=== PATIENT | male | born 1985 | race Caucasian/White ===

== ENCOUNTER 2023-10-22 19:49 | Emergency (ER) | payer MEDICAID ==
[~2023-10-22] VITALS: Ht 165.1 cm; Wt 63.5 kg
[2023-10-22 19:54] VITALS: PULSE 108; RESP 12; O2SAT 97
[2023-10-22 19:55] VITALS: BP 140/103; PULSE 114; RESP 13; TEMP 97.5; O2SAT 99
[2023-10-22] MEDS ORDERED: ONDANSETRON 4 MG/2 ML VIAL ONE (20:00)
[2023-10-22] MEDS: NALOXONE PFS 2 MG/2 ML SYR IVP ONE (20:03)
[2023-10-22] MEDS: ONDANSETRON 4 MG/2 ML VIAL IVP ONE (20:07)
[2023-10-22] MEDS: KETOROLAC 30 MG/ML VIAL IVP ONE (20:28)
[2023-10-22 21:40] VITALS: BP 122/94; PULSE 96; RESP 14; TEMP 97.5; O2SAT 100
== END 2023-10-22 21:40 | disposition home or self-care (01) ==
LOC: MED 19:49
DX: T40.414A Poisoning by fentanyl or fentanyl analogs, undetermined, initial encounter (principal); F17.200 Nicotine dependence, unspecified, uncomplicated; Z86.73 Personal history of transient ischemic attack (TIA), and cerebral infarction without residual deficits; Z98.890 Other specified postprocedural states; Y92.89 Other specified places as the place of occurrence of the external cause
CPT/HCPCS: 82948; 93005; 96374; 96375; 99284; J1885; J2310; J2405